=== PATIENT | female | born 1975 ===

== ENCOUNTER 2025-03-02 06:16 | Day surgery (SDC) | payer OTHER, SELFPAY ==
[2025-03-02 12:44] VITALS: BMI 32.3
[2025-03-02 12:50] VITALS: BMI 32.3
[2025-03-02 12:51] VITALS: BP 110/62
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
[2025-03-02 14:54] VITALS: BP 120/68
[2025-03-02 15:00] VITALS: BP 112/75
[2025-03-02 15:15] VITALS: BP 115/66
[2025-03-02 15:30] VITALS: BP 129/70
== END 2025-03-02 15:47 | disposition home or self-care (01) ==
LOC: GI 06:16
PROVIDERS: ATTENDING PHYSICIAN Internal Medicine Gastroenterology
DX: K86.2 Cyst of pancreas (principal); R93.2 Abnormal findings on diagnostic imaging of liver and biliary tract; R93.5 Abnormal findings on diagnostic imaging of other abdominal regions, including retroperitoneum; K86.9 Disease of pancreas, unspecified
CPT/HCPCS: 43238; 88173